=== PATIENT | female | born 1970 | race Caucasian/White ===

== ENCOUNTER 2019-11-10 12:11 | Emergency (ER) | payer OTHER, SELFPAY ==
[~2019-11-10] VITALS: Ht 162.6 cm; Wt 92.5 kg
[~2019-11-10 12:11] MED LIST: HUM SUBQ; METF1000 PO; SIMV10TA1 PO; SYN.025 PO
[2019-11-10 12:18] VITALS: BP 110/70
--- NOTE | 2019-11-10 12:36 | NUR ---
c/o cough, chest pain & mid abdominal pain x 1 week. covid 19 tested + 11/04/19. med hx: DM
--- NOTE | 2019-11-10 14:15 | NUR ---
Patient being evaluated by JOSE BORGES at [facility].
--- NOTE | 2019-11-10 15:04 | NUR ---
Patient discharged with v/s stable. Written and verbal after care instructions given and explained. Patient alert, oriented and verbalized understanding of instructions. Ambulatory with steady gait. All questions addressed prior to discharge. ID band removed. Patient advised to follow up with PMD. Rx of ALBUTEROL & IBUPROFEN given. Patient educated on indication of medication including possible reaction and side effects. Opportunity to ask questions provided and answered.
[2019-11-10 15:05] VITALS: BP 110/70
== END 2019-11-10 15:04 | disposition home or self-care (01) ==
LOC: MED 12:11
DX: U07.1 COVID-19 (principal); R10.13 Epigastric pain; E11.9 Type 2 diabetes mellitus without complications; E07.9 Disorder of thyroid, unspecified; Z79.899 Other long term (current) drug therapy; Z79.84 Long term (current) use of oral hypoglycemic drugs
CPT/HCPCS: 71045; 99283

== ENCOUNTER 2020-01-17 21:22 | Emergency (ER) | payer OTHER, SELFPAY ==
[~2020-01-17] VITALS: Ht 162.6 cm; Wt 118.4 kg
[2020-01-17 21:35] VITALS: BP 143/85
--- NOTE | 2020-01-17 21:39 | NUR ---
pt ambulated to bed 07 with steady gait.
[2020-01-17 22:38] LABS: BASOPHILS % (AUTO) 0.8 % (0.0-2.0); EOSINOPHILS # (AUTO) 0.1 K/uL (0-0.4); HEMATOCRIT 39.9 % (36-48); HEMOGLOBIN 13.1 g/dL (12.0-16.0); LYMPHOCYTES # (AUTO) 1.8 K/uL (2.5-16.5); LYMPHOCYTES % (AUTO) 33.3 % (20.5-51.1); MEAN CORPUSCULAR HEMOGLOBIN 30 pg (27-31); MEAN CORPUSCULAR HGB CONC 33 g/dL (33-37); MEAN CORPUSCULAR VOLUME 90.1 fL (80-94); MONOCYTES # (AUTO) 0.2 K/uL (0.8-1.0); MONOCYTES % (AUTO) 4.6 % (1.7-9.3); NEUTROPHILS # (AUTO) 3.1 K/uL (1.8-7.7); NEUTROPHILS % (AUTO) 59.3 % (42.2-75.2); PLATELET COUNT (AUTO) 178 K/uL (140-450); RED BLOOD CELL COUNT(AUTO) 4.42 MIL/uL (4.20-5.40); WHITE BLOOD COUNT (AUTO) 5.3 K/uL (4.8-10.8)
--- NOTE | 2020-01-17 22:40 | NUR ---
LAB AT BEDSIDE.
--- NOTE | 2020-01-17 22:53 | NUR ---
URINE COLLECTED AND WALKED OVER TO LAB.
[2020-01-17 23:00] LABS: PROTHROMBIN TIME 9.3 secs (10.8-13.4)
[2020-01-17 23:01] LABS: ALBUMIN 3.4 g/dL (3.4-5.0); ANION GAP 11.9 (8-16); ASPARTATE AMINOTRANSFERASE 24 U/L (15-37); CARBON DIOXIDE 27.4 mmol/L (21-32); CHLORIDE 101 mmol/L (98-107); CREATININE 0.9 mg/dL (0.6-1.3); GFR ARICAN-AMERICAN 85 mL/min (>90); POTASSIUM 4.3 mmol/L (3.5-5.1); SODIUM SERUM 136 mmol/L (136-145); TOTAL BILIRUBIN 0.3 mg/dL (0.0-1.0); UREA NITROGEN, BLOOD 14 mg/dL (7-18)
[2020-01-17 23:03] LABS: ACETAMINOPHEN < 0.5 ug/ml (10-30); GLUCOSE 423 mg/dL (74-106); SALICYLATE < 2.8 mg/dL (2.8-20.0)
[2020-01-17 23:14] LABS: BARBITURATE, URINE NEGATIVE ng/ml (NEG <=200); BENZODIAZEPINE, URINE NEGATIVE ng/mL (NEG <=200); CANNABINOID, URINE NEGATIVE ng/mL (NEG <=50); COCAINE, URINE NEGATIVE ng/mL (NEG <=300); OPIATE, URINE NEGATIVE ng/mL (NEG <=2000); PHENCYCLIDINE SCREEN,URINE NEGATIVE ng/mL (NEG <=25)
[2020-01-18] MEDS ORDERED: INSULIN REGULAR, HUMAN 100 UNIT/ML VIAL IV ONE (00:20)
[2020-01-18] MEDS ORDERED: NACL 0.9% 1,000 ML IV ONE ×2 (00:20→00:25)
[2020-01-18] MEDS ORDERED: INSULIN REGULAR, HUMAN 100 UNIT/ML VIAL IVP ONE (00:25)
[2020-01-18 00:50] VITALS: BP 130/94
--- NOTE | 2020-01-18 00:50 | NUR ---
Patient discharged with v/s stable. Written and verbal after care instructions given and explained. Patient alert, oriented and verbalized understanding of instructions. Ambulatory with steady gait. All questions addressed prior to discharge. ID band removed. Patient advised to follow up with PMD. Rx of TYLENOL WITH CODEINE given. Patient educated on indication of medication including possible reaction and side effects. Opportunity to ask questions provided and answered.
== END 2020-01-18 00:50 | disposition home or self-care (01) ==
LOC: MED 21:22
DX: T50.901A Poisoning by unspecified drugs, medicaments and biological substances, accidental (unintentional), initial encounter (principal); E11.00 Type 2 diabetes mellitus with hyperosmolarity without nonketotic hyperglycemic-hyperosmolar coma (NKHHC); E03.9 Hypothyroidism, unspecified; K08.89 Other specified disorders of teeth and supporting structures; Z79.899 Other long term (current) drug therapy
CPT/HCPCS: 36415; 80053; 80305; 82550; 85025; 85610; 85730; 99283; G0480; J1815

== ENCOUNTER 2020-01-23 14:10 | Emergency (ER) | payer OTHER, SELFPAY ==
[~2020-01-23] VITALS: Ht 162.6 cm; Wt 92.5 kg
--- NOTE | 2020-01-23 14:10 | NUR ---
Patient transferred to bed 5 via wheelchair by tech. RN evaluating patient at bedside.
[2020-01-23 14:24] VITALS: BP 120/49
--- NOTE | 2020-01-23 14:24 | NUR ---
Triage and complete assessment done at pt bedside.
--- NOTE | 2020-01-23 14:30 | NUR ---
Pt complains of chest pain 7/10 pressure constant. States she was seen here 2 days ago for chest pain as well. Pt states +N/V X2 today, abdomen is soft, round, non-tender, bowel sounds present X4. Denies fever but states she feels chills and dizziness at this time. PMH: DM, HTN, HLD, RA RX: Gabapentin, metformin, insulin name unknown, atorvastatin. NKA
--- NOTE | 2020-01-23 14:31 | NUR ---
[employer] EMT at pt bedside for EKG.
--- NOTE | 2020-01-23 14:57 | NUR ---
Lab at bedside for blood draw
--- NOTE | 2020-01-23 15:02 | NUR ---
switch technician at bedside for XR-chest.
[2020-01-23 15:11] LABS: BASOPHILS % (AUTO) 0.7 % (0.0-2.0); EOSINOPHILS # (AUTO) 0.1 K/uL (0-0.4); EOSINOPHILS % (AUTO) 2.3 % (0.0-4.0); HEMATOCRIT 38.8 % (36-48); HEMOGLOBIN 13.1 g/dL (12.0-16.0); LYMPHOCYTES # (AUTO) 1.4 K/uL (2.5-16.5); LYMPHOCYTES % (AUTO) 31.4 % (20.5-51.1); MEAN CORPUSCULAR HEMOGLOBIN 30 pg (27-31); MEAN CORPUSCULAR HGB CONC 34 g/dL (33-37); MEAN CORPUSCULAR VOLUME 88.7 fL (80-94); MONOCYTES # (AUTO) 0.3 K/uL (0.8-1.0); NEUTROPHILS # (AUTO) 2.7 K/uL (1.8-7.7); NEUTROPHILS % (AUTO) 59.6 % (42.2-75.2); PLATELET COUNT (AUTO) 181 K/uL (140-450); RED BLOOD CELL COUNT(AUTO) 4.37 MIL/uL (4.20-5.40); WHITE BLOOD COUNT (AUTO) 4.6 K/uL (4.8-10.8)
[2020-01-23 15:31] LABS: ALBUMIN 3.1 g/dL (3.4-5.0); ANION GAP 11.2 (8-16); CARBON DIOXIDE 29.8 mmol/L (21-32); CREATININE 0.8 mg/dL (0.6-1.3); TOTAL BILIRUBIN 0.4 mg/dL (0.0-1.0)
--- NOTE | 2020-01-23 16:30 | NUR ---
Performed DEMETRIO RODRIGUEZ, walked to lab.
[2020-01-23 16:34] VITALS: BP 120/49
--- NOTE | 2020-01-23 16:34 | NUR ---
Patient discharged with v/s stable. Written and verbal after care instructions given and explained. Patient verbalized understanding. Ambulatory with steady gait. All questions addressed prior to discharge. Advised to follow up with PMD.
== END 2020-01-23 16:34 | disposition home or self-care (01) ==
LOC: MED 14:10
DX: R07.9 Chest pain, unspecified (principal); M79.10 Myalgia, unspecified site; R53.1 Weakness; E11.9 Type 2 diabetes mellitus without complications; E78.5 Hyperlipidemia, unspecified; E03.9 Hypothyroidism, unspecified; I10 Essential (primary) hypertension; Z79.4 Long term (current) use of insulin; Z79.899 Other long term (current) drug therapy
CPT/HCPCS: 36415; 71045; 80053; 83880; 84484; 85025; 93005; 99285; U0003

== ENCOUNTER 2020-03-26 22:06 | Emergency (ER) | payer OTHER ==
[~2020-03-26] VITALS: Ht 162.6 cm; Wt 94.3 kg
[2020-03-26 22:13] VITALS: BP 150/80
[2020-03-26] MEDS ORDERED: AMOXICILLIN 500 MG CAP PO ONE (22:30)
[2020-03-26] MEDS ORDERED: MORPHINE SULFATE 2 MG/ML SYR IM ONE (22:30)
[2020-03-26 22:44] VITALS: BP 150/80
== END 2020-03-26 22:44 | disposition home or self-care (01) ==
LOC: MED 22:06
DX: K04.7 Periapical abscess without sinus (principal); E11.9 Type 2 diabetes mellitus without complications; I10 Essential (primary) hypertension; Z79.899 Other long term (current) drug therapy; Z79.84 Long term (current) use of oral hypoglycemic drugs
CPT/HCPCS: 96372; 99283; J2270

== ENCOUNTER 2020-03-27 09:29 | Emergency (ER) | payer OTHER ==
[~2020-03-27] VITALS: Ht 162.6 cm; Wt 94.3 kg
[2020-03-27 09:42] VITALS: BP 132/46
[2020-03-27] MEDS ORDERED: CLINDAMYCIN 600 MG/4 ML VIAL IM ONE (10:05)
[2020-03-27] MEDS ORDERED: KETOROLAC 30 MG/ML VIAL IM ONE (10:05)
[2020-03-27 10:37] VITALS: BP 132/46
== END 2020-03-27 10:37 | disposition home or self-care (01) ==
LOC: MED 09:29
DX: K04.7 Periapical abscess without sinus (principal); E11.9 Type 2 diabetes mellitus without complications; I10 Essential (primary) hypertension; Z79.899 Other long term (current) drug therapy; Z79.84 Long term (current) use of oral hypoglycemic drugs
CPT/HCPCS: 96372; 99284; J1885; J3490

== ENCOUNTER 2021-09-22 18:07 | Emergency (ER) | payer OTHER ==
[~2021-09-22] VITALS: Ht 162.6 cm; Wt 97.7 kg
[~2021-09-22 18:07] MED LIST changes: +METF-1274 PO; -METF1000 PO
[2021-09-22 18:26] VITALS: BP 140/66
--- NOTE | 2021-09-22 20:13 | NUR ---
Dr. Marmolejo examining patient.
--- NOTE | 2021-09-22 20:21 | NUR ---
Blood for labwork drawn from left arm per phelbotomist. Patient tolerated well.
[2021-09-22 20:28] LABS: BASOPHILS # (AUTO) 0.1 K/uL (0.00-0.22); BASOPHILS % (AUTO) 0.9 % (0.0-2.0); EOSINOPHILS # (AUTO) 0.2 K/uL (0-0.4); EOSINOPHILS % (AUTO) 2.1 % (0.0-4.0); LYMPHOCYTES # (AUTO) 2.7 K/uL (2.5-16.5); LYMPHOCYTES % (AUTO) 32.6 % (20.5-51.1); MEAN CORPUSCULAR HEMOGLOBIN 29 pg (27-31); MEAN CORPUSCULAR HGB CONC 33 g/dL (33-37); MEAN CORPUSCULAR VOLUME 89.9 fL (80-94); MONOCYTES # (AUTO) 0.3 K/uL (0.8-1.0); NEUTROPHILS % (AUTO) 60.4 % (42.2-75.2); PLATELET COUNT (AUTO) 193 K/uL (140-450); RED BLOOD CELL COUNT(AUTO) 4.45 MIL/uL (4.20-5.40); RED CELL DISTRIBUTION WIDTH 14.1 % (11.6-13.7); WHITE BLOOD COUNT (AUTO) 8.3 K/uL (4.8-10.8)
[2021-09-22 20:47] LABS: ALBUMIN 3.4 g/dL (3.4-5.0); ANION GAP 10.9 (8-16); CARBON DIOXIDE 29.8 mmol/L (21-32); CREATININE 0.8 mg/dL (0.6-1.3); POTASSIUM 3.7 mmol/L (3.5-5.1); TOTAL BILIRUBIN 0.3 mg/dL (0.0-1.0)
[2021-09-22 21:15] LABS: FREE T4 (FREE THYROXINE) 1.21 ng/dL (0.76-1.46); THYROID STIMULATING HORMONE 1.01 uIU/mL (0.34-3.74)
--- NOTE | 2021-09-22 21:35 | NUR ---
Dr. Marmolejo explained results and treatment plans.
[2021-09-22] MEDS ORDERED: NAPR-54 PO (21:44)
[2021-09-22 21:57] VITALS: BP 136/77
--- NOTE | 2021-09-22 21:57 | NUR ---
Patient discharged with v/s stable. Written and verbal after care instructions given and explained for Muscle pain. Patient alert, oriented and verbalized understanding of instructions. Ambulatory with steady gait. All questions addressed prior to discharge. ID band removed. Patient advised to follow up with PMD. Rx of Naproxen given. Patient educated on indication of medication including possible reaction and side effects. Opportunity to ask questions provided and answered.
== END 2021-09-22 21:57 | disposition home or self-care (01) ==
LOC: MED 18:07
DX: M79.10 Myalgia, unspecified site (principal); R53.83 Other fatigue; R42 Dizziness and giddiness; R51.9 Headache, unspecified; R53.1 Weakness; E11.9 Type 2 diabetes mellitus without complications; I10 Essential (primary) hypertension; Z79.4 Long term (current) use of insulin; Z79.899 Other long term (current) drug therapy
CPT/HCPCS: 36415; 80053; 81002; 84439; 84443; 85025; 99283